=== PATIENT | female | born 1945 | race Caucasian/White ===

== ENCOUNTER 2024-03-04 14:47 | Emergency (ER) | payer MEDICARE, SELFPAY ==
[2024-03-04 14:56] VITALS: BP 129/71; PULSE 89; RESP 16; TEMP 36.2; O2SAT 96
--- NOTE | 2024-03-04 16:00 | ED.GENADULT ---
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 Patient states the pain resolved by the evening. Patient states it acute lower lower right quadrant pain started again today 2 hours prior to arrival while seated. Patient denies fever, nausea, vomiting, diarrhea , allergies, urinary changes. Patient states that last bowel movement occurred shortly after arriving at clinic and states was normal. respirations even nonlabored. Patient in no acute distress. Related Data Home Medications Medication Instructions Recorded Confirmed atorvastatin 20 mg tablet mg 03/04/24 citalopram 10 mg tablet mg 03/04/24 duloxetine 20 mg capsule,delayed mg PO 03/04/24 release fluticasone 250 mcg-salmeterol 50 inhalation 03/04/24 mcg/dose blistr powdr for inhalation ([facility] In[facility]) fluticasone propionate 50 intranasal 03/04/24 mcg/actuation nasal spray,suspension sertraline 25 mg tablet mg 03/04/24 trazodone 50 mg tablet mg 03/04/24 Allergies Allergy/AdvReac Type Severity Reaction Status Date / Time No Known Allergies Allergy Verified 03/04/24 17:00 Review of Systems Review of Systems: All systems reviewed & are unremarkable except as noted in HPI and below Constitutional: Constitutional: Reports no additional constitutional complaints Eyes: Eyes: Reports no additional eye complaints ENT: Reports system reviewed and no additional complaints, except as documented Cardiovascular: Cardiovascular: Reports no additional cardiovascular complaints, Denies chest pain and Denies dyspnea Respiratory: Respiratory: Reports no additional respiratory complaints, Denies cough and Denies dyspnea Gastrointestinal: Gastrointestinal: Reports as per HPI and Reports abdominal pain ( Lower right quadrant) Musculoskeletal: Musculoskeletal: Reports no additional musculoskeletal complaints Neurologic: Reports system reviewed and no additional complaints, except as documented Psychiatric: Psychiatric: Reports no additional psychiatric complaints PMFSH Comments At the time of my signature, I reviewed and agree with the nursing past medical, surgical, social, and family history. There is no relevant family history pertinent to the patient complaint. Exam Const: General: cooperative, healthy appearing, no acute distress, alert, uncomfortable and well nourished Nutritional Appearance: well nourished Orientation/consciousness: patient oriented x3 Limitations: no limitations HENMT: Head: normal to inspection Ears: external ears normal Face/Nose/Sinus: Normal external nose present, Normal nares present, normal facial exam, No erythema and No edema Face and sinus: normal facial exam, no erythema and no edema Mouth: Yes Normal oral and palatal mucosa present Eyes: General: appearance normal, both eyes and all related structures Neck: Neck: normal visual inspection, full ROM and no meningeal signs Lymphatic: no lymphadenopathy noted and no lymphedema noted Chest: Chest palpation & inspection: normal inspection of the chest Resp: Effort & Inspection: normal respiratory effort and able to speak in complete sentences Auscultation: clear to auscultation bilaterally Cardio: Jugular venous distension: no JVD Rate: regular rate Rhythm: regular rhythm GI: GI Palp: Yes abdominal tenderness ( lower right quadrant) Back/Spine/Pelvis: Cervical Spine: cervical ROM normal Skin: General skin exam: normal color, no rashes or lesions noted and turgor normal Neuro: General: patient oriented x3, gait normal, moves all extremities and no meningeal signs Speech
== END 2024-03-04 16:20 | disposition short-term general hospital (02) ==
PROVIDERS: Emergency Provider Nurse Practitioner Family; PCP Hospitalist
DX: R10.31 Right lower quadrant pain (principal); E78.00 Pure hypercholesterolemia, unspecified
CPT/HCPCS: 99202; G0463